=== PATIENT | female | born 1980 | race Caucasian/White ===

== ENCOUNTER 2020-11-10 15:19 | Emergency (ER) | payer BC, MEDICAID, OTHER ==
[~2020-11-10] VITALS: Ht 157 cm; Wt 84.3 kg
[~2020-11-10 15:19] MED LIST: ACHYD1T PO; CODE-54 PO; DCS100C PO; FLT4413 IH; IBP800T PO; IBUP-16 PO; INSU100V3 SQ; MTF500T PO; NITR100C10 PO; NITR100C3 PO; NPH,100V SQ; OXYC1TAB12 PO; PREN1TAB39 PO; SULF1TAB35 PO
[2020-11-10 15:36] LABS: BILIRUBIN,URINE NEGATIVE (NEGATIVE); CLARITY,URINE CLOUDY; COLOR,URINE YELLOW; GLUCOSE, URINE (UA) 3+ (NEGATIVE); KETONES,URINE NEGATIVE (NEGATIVE); LEUKOCYTE ESTERASE ,URINE 1+ (NEGATIVE); NITRITE,URINE POSITIVE (NEGATIVE); PROTEIN,URINE 2+ (NEGATIVE)
[2020-11-10 15:46] LABS: RBC,URINE 25-50 /HPF; WBC,URINE 50-100 /HPF
[2020-11-10 15:48] LABS: BACTERIA,URINE TRACE /HPF
[2020-11-10] MEDS ORDERED: CEFU500T63 PO (15:57)
--- NOTE | 2020-11-10 15:57 | ED GU-Female ---
General Chief Complaint: - Reproductive Stated Complaint: BURNING/PAIN WHEN URINATING, UNABLE TO VOID Nursing Triage Note: Pt ambulatory to ER, c/o dysuria onset Thu. Pt reports saw PCP yesterday for this complaint. Pt was told that she had glucose in her urine but no UTI, test also negative. Pt describes the pain as 'peeing razor blades'. Pt also reports taking Azo to help with her s/s. Source: patient Exam Limitations: no limitations History of Present Illness Date Seen by Provider: Nov 10, 2020 Time Seen by Provider: 15:20 Initial Comments Urinary burning and frequency x3 days. Had normal urine yesterday at doctors office. Timing/Duration: just prior to arrival Severity/Quality: moderate Location: unknown Radiation: none Activities at Onset: none Prior Genitourinary Problems: none Associated Symptoms: denies symptoms; No abdominal pain; dysuria; No fever/chills, No nausea/vomiting; urinary frequency Allergies and Home Medications Allergies Coded Allergies: Metronidazole HCl (Verified Adverse Reaction, Unknown, 12/09/13) metronidazole (Verified Adverse Reaction, Unknown, 12/09/13) Patient Home Medication List Home Medication List Reviewed: Yes Cefuroxime Axetil (Cefuroxime) 500 Mg Tablet, 500 MG PO BID Prescribed by: DIDIER ROSALES on 11/10/20 155 Fluticasone Propionate (Flovent Hfa 44 mcg) 1 Ea Aero, 1 EA IH BID, (Reported) Entered as Reported by: GRACE BUCIO on 03/12/151915 Ibuprofen (Motrin Ib) 200 Mg Tablet, 200 MG PO QID PRN for PAIN, (Reported) Entered as Reported by: GRACE BUCIO on 03/12/151915 Review of Systems Review of Systems Constitutional: see HPI EENTM: see HPI Respiratory: no symptoms reported Cardiovascular: no symptoms reported Genitourinary: no symptoms reported Musculoskeletal: no symptoms reported Skin: no symptoms reported Psychiatric/Neurological: No Symptoms Reported Endocrine: No Symptoms Reported Hematologic/Lymphatic: No Symptoms Reported Past Ccrqtdt-Iawnzt-Afvigi Hx Patient Social History Tobacco Use?: No Substance use?: No Alcohol Use?: No Pt feels they are or have been: No Immunizations Up To Date Tetanus Booster (TDap): Unknown PED Vaccines UTD: No First/Initial COVID19 Vaccinat: May 2020 Second COVID19 Vaccination Albaro: May 2020 COVID19 Vaccine Online Content Coordinator: Ehekaterina Past Medical History Section Asthma Reproductive Disorders: No Kidney Stones Diabetes, Non-Insulin dep Adverse Reaction/Blood Tranf: No Family Medical History FH: bipolar disorder 19 MOTHER Physical Exam Vital Signs Vital Signs - First Documented 11/10/20 15:27 Temp 35.7 Pulse 89 Resp 18 B/P (MAP) 149/103 (118) Pulse Ox 94 O2 Delivery Room Air Capillary Refill : Height, Weight, BMI Height: 5'2.00" Weight: 216lbs. 2.0oz. [id number]; 34.00 BMI Method:Stated General Appearance: WD/WN, no apparent distress HEENT: PERRL/EOMI, normal ENT inspection Neck: non-tender, full range of motion Cardiovascular: regular rate, rhythm, no murmur Respiratory: normal breath sounds, no respiratory distress Gastrointestinal: normal bowel sounds, non tender, soft Extremities: normal range of motion, non-tender Neurologic/Psychiatric: alert, normal mood/affect, oriented x 3 Skin: normal color, warm/dry Progress/Results/Core Measures Suspected Sepsis SIRS Temperature: Pulse: 89 Respiratory Rate: 18 Blood Pressure 149 /103 Mean: 118 Results/Orders Lab Results Laboratory Tests Test 11/10/20 15:33 Range/Units Urine Color YELLOW Urine Clarity CLOUDY Urine pH 6.0 5-9 Urine Specific [place] 1.020 1.016-1.022 Urine Protein 2+ H NEGATIVE Urine Glucose (UA) 3+ H NEGATIVE Urine Ketones NEGATIVE NEGATIVE Urine Nitrite POSITIVE H NEGATIVE Urine Bilirubin NEGATIVE NEGATIVE Urine Urobilinogen 0.2 < = 1.0 MG/DL Urine Leukocyte Esterase 1+ H NEGATIVE Urine RBC (Auto) 3+ H NEGATIVE Urine RBC 25-50 H /HPF Urine WBC 50-100 H /HPF Urine Squamous Epithelial Cells NONE /HPF Urine Crystals NONE /LPF Urine Bacteria TRACE /HPF Urine Casts NONE /LPF Urine Mucus NEGATIVE /LPF Urine Culture Indicated YES Urine Test NEGATIVE NEGATIVE My Orders Orders - DIDIER ROSALES APRN Ua Culture If Indicated (11/10/20 15:22) Hcg,Qualitative Urine (11/10/20 15:22) Urine Culture (11/10/20 15:33) Phenazopyridine Tablet (Pyridium Tablet) (11/10/20 16:00) Ceftriaxone (Rocephin) (11/10/20 16:00) Lidocaine 1% Inj 20 Ml (Xylocaine 1% Inj (11/10/20 16:00) Medications Given in ED Current Medications Medications Dose Ordered Sig/Javier Route Start Time Stop Time Status Last Admin Dose Admin Ceftriaxone Sodium 1,000 mg ONCE ONCE IM 11/10/20 16:00 11/10/20 16:01 DC 11/10/20 16:01 1,000 MG Lidocaine HCl 2.1 ml ONCE ONCE INJ 11/10/20 16:00 11/10/20 16:01 DC 11/10/20 16:02 2.1 ML Phenazopyridine HCl 100 mg ONCE ONCE PO 11/10/20 16:00 11/10/20 16:01 DC 11/10/20 16:01 100 MG Vital Signs/I&O 11/10/20 11/10/20 15:27 16:03 Temp 35.7 Pulse 89 100 Resp 18 18 B/P (MAP) 149/103 (118) 153/105 Pulse Ox 94 97 O2 Delivery Room Air Room Air Capillary Refill : Blood Pressure Mean: 118 Departure Impression Primary Impression: Urinary tract infection Disposition: 01 HOME, SELF-CARE Condition: Stable Departure-Patient Inst. Decision time for Depature: 15:56 Referrals: JEWELS GALVAN DO (PCP/Family) Primary Care Physician Patient Instructions: Urinary Tract Infection, Adult (DC) Add. Discharge Instructions: 1. Increase fluid intake, antibiotics as directed starting tomorrow. All discharge instructions reviewed with patient and/or family. Voiced understanding. Scripts Cefuroxime Axetil (Cefuroxime) 500 Mg Tablet 500 MG PO BID, #10 TAB Prov: DIDIER ROSALES APRN 11/10/20 Work/School Note: Work Release Form Date Seen in the Emergency Department: Nov 10, 2020 Return to Work: Nov 12, 2020 DIDIER ROSALES APRN Nov 10, 2020 15:57
[2020-11-10] MEDS ORDERED: PHENAZOPYRIDINE 100 MG (PYRIDIUM) TABLET PO ONE (16:00)
[2020-11-10] MEDS ORDERED: LIDOCAINE 1% INJ 20 ML 20 ML VIAL INJ ONE (16:00)
[2020-11-10] MEDS ORDERED: cefTRIAXone 1,000 MG VIAL IM ONE (16:00)
[2020-11-10 16:14] VITALS: BP 126/93
== END 2020-11-10 16:15 | disposition home or self-care (01) ==
LOC: EDUNIT# 15:19 → ER 15:21
DX: N39.0 Urinary tract infection, site not specified (principal); J45.909 Unspecified asthma, uncomplicated; E11.9 Type 2 diabetes mellitus without complications
CPT/HCPCS: 81000; 84703; 87077; 87088; 87186; 99284

== ENCOUNTER 2022-04-29 21:21 | Emergency (ER) | payer BC, OTHER ==
[~2022-04-29] VITALS: Ht 157.5 cm; Wt 83.9 kg
[~2022-04-29 21:21] MED LIST changes: +CEFU500T63 PO
[2022-04-29 21:41] LABS: BASOPHILS # (AUTO) 0.1 10^3/uL (0.0-0.1); BASOPHILS % (AUTO) 0 % (0-10); EOSINOPHILS # (AUTO) 0.3 10^3/uL (0.0-0.3); EOSINOPHILS % (AUTO) 2 % (0-10); HEMATOCRIT 41 % (35-52); LYMPHOCYTES # (AUTO) 3.6 10^3/uL (1.0-4.0); LYMPHOCYTES % (AUTO) 32 % (12-44); MEAN CORPUSCULAR HEMOGLOBIN 29 pg (25-34); MEAN CORPUSCULAR HGB CONC 34 g/dL (32-36); MEAN CORPUSCULAR VOLUME 84 fL (80-99); MEAN PLATELET VOLUME 10.1 fL (9.0-12.2); MONOCYTES # (AUTO) 0.6 10^3/uL (0.0-1.0); MONOCYTES % (AUTO) 5 % (0-12); NEUTROPHILS # (AUTO) 6.7 10^3/uL (1.8-7.8); NEUTROPHILS % (AUTO) 59 % (42-75); PLATELET COUNT 304 10^3/uL (130-400); WHITE BLOOD COUNT 11.2 10^3/uL (4.3-11.0)
[2022-04-29] MEDS ORDERED: NS IV 1000 ML 1,000 ML IV SCH ×2 (21:45)
[2022-04-29] MEDS ORDERED: ONDANSETRON 4 MG/2 ML (SDV) Z0FRAN IVP ONE (21:45)
--- NOTE | 2022-04-29 21:47 | ED General ---
General Chief Complaint: Glucose Problems Stated Complaint: HIGH BLOOD SUGAR 400+ Nursing Triage Note: PATIENT STATES LAST TWO DAYS NOT FEELILNG WELL STATES, NAUSEA AND DIZZINESS, STATES NOT CHECKING BS OFTEN SHE SHOULD Source of Information: Patient History of Present Illness Date Seen by Provider: Apr 29, 2022 Time Seen by Provider: 21:32 Initial Comments PT ARRIVES VIA POV FROM HOME PT STATES SHE "JUST HASN'T FELT GOOD TODAY"--FELT DIZZY AND NAUSEATED PT IS NON-INSULIN DEPENDENT DIABETIC, DOES NOT ROUTINELY CHECK HER BLOOD SUGARS SHE ATE DINNER TONIGHT AROUND 1830 ( [employer]) AND THEN CHECKED HER BLOOD SUGAR AFTERWARD AND IT WAS 396, SO CAME HERE--STATES "MY DR TOLD ME IF IT WAS EVER OVER 300 I NEEDED TO GO TO ER" SHE HAS HAD NAUSEA, NO VOMITING, NORMAL BM, AND NO ABDOMINAL PAIN SHE HAS HAD THIRST AND URINARY FREQUENCY FOR THE LAST COUPLE OF DAYS NO PAIN/BURNING ON URINATION NO FEVER NO PAIN ANYWHERE NO RECENT ILLNESS SHE HAD GESTATIONAL DIABETES WITH BOTH PREGNANCIES, THEN WAS DIAGNOSED WITH TYPE 2 DIABETES A LITTLE OVER A YEAR AGO SHE TAKES JARDIANCE AND METFORMIN. SHE HAS NOT MISSED ANY DOSES OF HER MEDICATIONS, SHE HAS NOT TAKEN HER EVENING MEDICATIONS SHE STATES HER LAST HGB Z1C WAS LAST NOVEMBER AND WAS 7.5. SHE HAS NEVER BEEN IN DKA TO HER KNOWLEDGE ADDITIONALLY, SHE HAS HTN AND DEPRESSION/ANXIETY. LMP: 04/22/22. NORMAL. ON OCP'S PCP: SAUMYA, DR. GALVAN Allergies and Home Medications Allergies Coded Allergies: Metronidazole HCl (Verified Adverse Reaction, Unknown, 12/09/13) metronidazole (Verified Adverse Reaction, Unknown, 12/09/13) Patient Home Medication List Cefuroxime Axetil (Cefuroxime) 500 Mg Tablet, 500 MG PO BID Prescribed by: DIDIER ROSALES on 11/10/201556 Fluticasone Propionate (Flovent Hfa 44 mcg) 1 Ea Aero, 1 EA IH BID, (Reported) Entered as Reported by: GRACE BUCIO on 03/12/151915 Ibuprofen (Motrin Ib) 200 Mg Tablet, 200 MG PO QID PRN for PAIN, (Reported) Entered as Reported by: GRACE BUCIO on 03/12/151915 Review of Systems Review of Systems Constitutional: see HPI; No chills, No diaphoresis; dizziness; No fever EENTM: other (THIRST); No throat pain Respiratory: no symptoms reported Cardiovascular: no symptoms reported Gastrointestinal: see HPI; No abdominal pain, No diarrhea, No loss of appetite; nausea; No vomiting Genitourinary: see HPI; No dysuria; frequency : No LMP: Apr 22, 2022 Musculoskeletal: no symptoms reported Skin: no symptoms reported Psychiatric/Neurological: No Symptoms Reported Hematologic/Lymphatic: No Symptoms Reported Immunological/Allergic: no symptoms reported Past Tfstadb-Sxklok-Zxyauj Hx Patient Social History Tobacco Use?: No Use of E-Cig and/or Vaping dev: No Substance use?: No Alcohol Use?: No Immunizations Up To Date Tetanus Booster (TDap): Unknown PED Vaccines UTD: No First/Initial COVID19 Vaccinat: May 2020 Second COVID19 Vaccination Albaro: May 2020 Past Medical History Surgery/Hospitalization HX: DM2, ASTHMA, ANXIETY AND DEPRESSION Section Asthma Reproductive Disorders: No Kidney Stones Diabetes, Non-Insulin dep Adverse Reaction/Blood Tranf: No Family Medical History FH: bipolar disorder 19 MOTHER Physical Exam Vital Signs Vital Signs - First Documented 04/29/22 21:27 Temp 36.9 Pulse 94 Resp 20 B/P (MAP) 136/118 (124) Pulse Ox 97 O2 Delivery Room Air Capillary Refill : Less Than 3 Seconds Height, Weight, BMI Height: 5'2.00" Weight: 216lbs. 2.0oz. 98.561760jt; 33.00 BMI Method:Stated Progress/Results/Core Measures Suspected Sepsis SIRS Temperature: Pulse: 94 Respiratory Rate: 20 Laboratory Tests 04/29/22 21:32: White Blood Count 11.2H Blood Pressure 136 /118 Mean: 124 Laboratory Tests 04/29/22 21:32: Creatinine 1.13, Platelet Count 304, Total Bilirubin 0.2 Results/Orders Lab Results Laboratory Tests Test 04/29/22 21:29 04/29/22 21:32 04/29/22 21:43 Range/Units Glucometer 354 H 70-110 MG/DL White Blood Count 11.2 H 4.3-11.0 10^3/uL Red Blood Count 4.91 3.80-5.11 10^6/uL Hemoglobin 14.0 11.5-16.0 g/dL Hematocrit 41 35-52 % Mean Corpuscular Volume 84 80-99 fL Mean Corpuscular Hemoglobin 29 25-34 pg Mean Corpuscular Hemoglobin Concent 34 32-36 g/dL Red Cell Distribution Width 12.8 10.0-14.5 % Platelet Count 304 130-400 10^3/uL Mean Platelet Volume 10.1 9.0-12.2 fL Immature Granulocyte % (Auto) 1 % Neutrophils (%) (Auto) 59 42-75 % Lymphocytes (%) (Auto) 32 12-44 % Monocytes (%) (Auto) 5 0-12 % Eosinophils (%) (Auto) 2 0-10 % Basophils (%) (Auto) 0 0-10 % Neutrophils # (Auto) 6.7 1.8-7.8 10^3/uL Lymphocytes # (Auto) 3.6 1.0-4.0 10^3/uL Monocytes # (Auto) 0.6 0.0-1.0 10^3/uL Eosinophils # (Auto) 0.3 0.0-0.3 10^3/uL Basophils # (Auto) 0.1 0.0-0.1 10^3/uL Immature Granulocyte # (Auto) 0.1 0.0-0.1 10^3/uL Sodium Level 136 135-145 MMOL/L Potassium Level 3.9 3.6-5.0 MMOL/L Chloride Level 105 98-107 MMOL/L Carbon Dioxide Level 19 L 21-32 MMOL/L Anion Gap 12 5-14 MMOL/L Blood Urea Nitrogen 11 7-18 MG/DL Creatinine 1.13 0.60-1.30 MG/DL Estimat Glomerular Filtration Rate 63 BUN/Creatinine Ratio 10 Glucose Level 366 H 70-105 MG/DL Calcium Level 8.7 8.5-10.1 MG/DL Corrected Calcium 9.2 8.5-10.1 MG/DL Magnesium Level 1.8 1.6-2.4 MG/DL Total Bilirubin 0.2 0.1-1.0 MG/DL Aspartate Amino Transf (AST/SGOT) 10 5-34 U/L Alanine Aminotransferase (ALT/SGPT) 15 0-55 U/L Alkaline Phosphatase 72 40-136 U/L Total Protein 6.7 6.4-8.2 GM/DL Albumin 3.4 3.2-4.5 GM/DL Amylase Level 46 25-125 U/L Lipase 54 8-78 U/L Beta-Hydroxybutyrate (Chem panel) 0.13 0.00-0.27 MMOL/L Serum Test, Qualitative NEGATIVE NEGATIVE Urine Color YELLOW Urine Clarity CLEAR Urine pH 6.5 5-9 Urine Specific [place] <=1.005 1.016-1.022 Urine Protein NEGATIVE NEGATIVE Urine Glucose (UA) 3+ H NEGATIVE Urine Ketones NEGATIVE NEGATIVE Urine Nitrite NEGATIVE NEGATIVE Urine Bilirubin NEGATIVE NEGATIVE Urine Urobilinogen 0.2 < = 1.0 MG/DL Urine Leukocyte Esterase NEGATIVE NEGATIVE Urine RBC (Auto) NEGATIVE NEGATIVE Urine RBC NONE /HPF Urine WBC 5-10 H /HPF Urine Squamous Epithelial Cells RARE /HPF Urine Crystals NONE /LPF Urine Bacteria TRACE /HPF Urine Casts NONE /LPF Urine Mucus NEGATIVE /LPF Urine Culture Indicated NO My Orders Orders - ZAC DORADO DO Accucheck Stat ONCE (04/29/22 21:32) Ed Iv/Invasive Line Start (04/29/22 21:32) Urine Bedside (04/29/22 21:32) Monitor-Rhythm Ecg Trace Only (04/29/22 21:32) Amylase (04/29/22 21:32) Cbc With Automated Diff (04/29/22 21:32) Comprehensive Metabolic Panel (04/29/22 21:32) Lipase (04/29/22 21:32) Magnesium (04/29/22 21:32) Ua Culture If Indicated (04/29/22 21:32) Ed Iv/Invasive Line Start (04/29/22 21:32) Ns Iv 1000 Ml (Sodium Chloride 0.9%) (04/29/22 21:45) Ed Iv/Invasive Line Start (04/29/22 21:40) Ns Iv 1000 Ml (Sodium Chloride 0.9%) (04/29/22 21:45) Ondansetron Injection (Zofran Injectio (04/29/22 21:45) Hemoglobin A1c (04/29/22 21:40) Beta Hydroxybutyrate (04/29/22 21:40) Hcg,Qualitative Serum (04/29/22 21:55) Accucheck Stat ONCE (04/29/22 23:43) Medications Given in ED Current Medications Medications Dose Ordered Sig/Javier Route Start Time Stop Time Status Last Admin Dose Admin Ondansetron HCl 4 mg ONCE ONCE IVP 04/29/22 21:45 04/29/22 21:46 DC 04/29/22 21:47 4 MG Vital Signs/I&O 04/29/22 21:27 Temp 36.9 Pulse 94 Resp 20 B/P (MAP) 136/118 (124) Pulse Ox 97 O2 Delivery Room Air Capillary Refill : Less Than 3 Seconds Blood Pressure Mean: 124 Point of Care Testing Finger Stick Blood Glucose: 354 Progress Note : Progress Note GIVEN IV FLUIDS ACCUCHECK AFTER FLUIDS--222 PT HAD NO COMPLAINTS FOR REMAINDER OF ER STAY VITALS STABLE Departure Impression Primary Impression: HYPERGLYCEMIA IN NON INSULIN DEPENDENT DIABETES Disposition: HOME, SELF-CARE Condition: Improved Departure-Patient Inst. Decision time for Depature: 23:52 Referrals: JEWELS GALVAN DO (PCP/Family) Primary Care Physician Patient Instructions: Calcium Carbonate and Simethicone, Type 2 Diabetes (DC) Add. Discharge Instructions: CONTINUE YOUR REGULAR MEDICATIONS PRESCRIBED INCREASE YOUR PROTEIN AND DECREASE YOUR CARBOHYDRATE INTAKE CHECK YOUR BLOOD SUGARS AT LEAST 3 TIMES A DAY AND KEEP DIARY FOLLOW UP WITH DR. GALVAN THIS WEEK FOR FURTHER CARE, RETURN TO ER IF SYMPTOMS WORSEN All discharge instructions reviewed with patient and/or family. Voiced understanding. ZAC DORADO DO Apr 29, 2022 21:47
[2022-04-29 21:50] LABS: BILIRUBIN,URINE NEGATIVE (NEGATIVE); CLARITY,URINE CLEAR; COLOR,URINE YELLOW; GLUCOSE, URINE (UA) 3+ (NEGATIVE); KETONES,URINE NEGATIVE (NEGATIVE); LEUKOCYTE ESTERASE ,URINE NEGATIVE (NEGATIVE); NITRITE,URINE NEGATIVE (NEGATIVE); PH,URINE 6.5 (5-9); PROTEIN,URINE NEGATIVE (NEGATIVE)
[2022-04-29 21:53] LABS: ALBUMIN 3.4 GM/DL (3.2-4.5); POTASSIUM 3.9 MMOL/L (3.6-5.0)
[2022-04-29 21:54] LABS: CALCIUM 8.7 MG/DL (8.5-10.1)
[2022-04-29 21:56] LABS: TOTAL PROTEIN 6.7 GM/DL (6.4-8.2)
[2022-04-29 21:57] LABS: BILIRUBIN,TOTAL 0.2 MG/DL (0.1-1.0)
[2022-04-29 21:59] LABS: CREATININE SERUM 1.13 MG/DL (0.60-1.30)
[2022-04-29 22:02] LABS: MAGNESIUM 1.8 MG/DL (1.6-2.4)
[2022-04-29 22:09] LABS: BACTERIA,URINE TRACE /HPF; SQUAMOUS EPITHELIAL CELL,UR RARE /HPF
[2022-04-30 00:10] VITALS: BP 127/97
== END 2022-04-30 00:10 | disposition home or self-care (01) ==
LOC: EDUNIT# 21:21 → ER 21:22
DX: E11.65 Type 2 diabetes mellitus with hyperglycemia (principal); Z79.84 Long term (current) use of oral hypoglycemic drugs
CPT/HCPCS: 36415; 80053; 81000; 82010; 82150; 82947; 83036; 83690; 83735; 84703; 85025; 93041